=== PATIENT | male | born 1950 | race Caucasian/White ===

== ENCOUNTER → 2021-02-21 | Day surgery (SDC) | payer MEDICARE, BC ==
[~2021-02-21] MED LIST: Ketamine 200 MG/20 ML MDV ONE; Phenylephrine 1% 10 MG/ML SDV ONE; Propofol 200 MG/20 ML SDV ONE; fentaNYL 100 MCG/2 ML SDV ONE
[2021-02-21] MEDS: Lactated Ringers 1,000 ML IV SCH (08:43)
[2021-02-21 10:03] VITALS: BP 122/74; PULSE 54
--- NOTE | 2021-02-21 12:41 | OR ---
DATE OF OPERATION: 02/21/2021 PREOPERATIVE DIAGNOSIS: POSITIVE COLOGUARD TEST. POSTOPERATIVE DIAGNOSIS: POSITIVE COLOGUARD TEST. SURGEON: Shukri Leary MD PROCEDURE: TOTAL COLONOSCOPY. ANESTHESIA: MAC. SPECIMEN: None. FINDINGS: Normal colonoscopy. RECOMMENDATIONS: Followup colonoscopy in 10 years or sooner for symptoms. INDICATIONS: This 70-year-old male has a positive Cologuard test. DESCRIPTION OF PROCEDURE: After adequate preparation, a colonoscope was inserted into the rectum. This was easily passed all the way to the cecum. Confirmation of the cecum was made by visualization of the ileocecal valve, palpation in the right lower quadrant, and the light shining through the right lower quadrant. Photograph of the ileocecal valve was taken. There was some fluid remaining in the colon, but this was easily suctioned clear to give a good examination. There was only one or two scattered diverticula in the sigmoid area of no significance, but there are no polyp, growth, or masses. Air was suctioned from the colon and the scope removed. IFRAH/LOUIS /[id number]
== END ==
LOC: CC.SDS 08:24
PROVIDERS: ATTEND Surgery
DX: K57.30 Diverticulosis of large intestine without perforation or abscess without bleeding (principal); N40.1 Benign prostatic hyperplasia with lower urinary tract symptoms; R35.1 Nocturia; N52.9 Male erectile dysfunction, unspecified; E78.5 Hyperlipidemia, unspecified; I10 Essential (primary) hypertension; E66.9 Obesity, unspecified; Z79.82 Long term (current) use of aspirin; Z79.899 Other long term (current) drug therapy; Z68.1 Body mass index [BMI] 19.9 or less, adult
CPT/HCPCS: J2370; J2704; J3010; J7120